=== PATIENT | male | born 1965 | race Hispanic/Latino ===

== ENCOUNTER 2020-01-26 18:14 | Emergency (ER) | payer SELFPAY ==
[2020-01-26 19:20] LABS: #Eosinphils 0.1 thou/uL (0.0-0.7); #Lymphocytes 1.1 thou/uL (1.20-3.40); #Monocytes 0.4 thou/uL (0.11-0.59); #Neutrophils 8.8 thou/uL (1.40-6.50); %Basophils 0.4 % (0.0-1.0); %Eosinophils 0.7 % (0.0-10.0); %Lymphocytes 10.7 % (21.0-51.0); %Neutrophils 84.2 % (42.0-75.0); Hemoglobin 11.3 g/dL (14.0-18.0); Mean Corpuscular HGB CONC 35.1 g/dL (32.0-36.0); Mean Corpuscular Volume 82.6 fL (78.0-98.0); Mean Platelet Volume 8.1 fL (7.4-10.4); Platelet Count 221 thou/uL (130-400); RBC Distribution Width 12.8 % (11.5-14.5); Red Blood Cell (RBC) Count 3.89 mill/uL (4.70-6.10); White Blood Cell (WBC) Count 10.5 thou/uL (4.8-10.8)
[2020-01-26 19:44] LABS: ALT (SGPT) 33 U/L (8-55); AST (SGOT) 19 U/L (5-34); Albumin 3.4 g/dL (3.5-5.0); Alkaline Phosphatase 107 U/L (40-110); Anion Gap 14 mmol/L (10-20); BUN (Urea Nitrogen) 34 mg/dL (8.4-25.7); Bilirubin, Total 0.3 mg/dL (0.2-1.2); Calc. Creatinine Clearance 0 mL/min (70-130); Calcium 8.8 mg/dL (7.8-10.44); Carbon Dioxide 22 mmol/L (22-29); Chloride 110 mmol/L (98-107); Estimated GFR-MDRD 29; Globulin 3.2 g/dL (2.4-3.5); Glucose 122 mg/dL (70-105); Protein, Total 6.6 g/dL (6.0-8.3); Sodium 141 mmol/L (136-145)
== END 2020-01-26 20:47 | disposition home or self-care (01) ==
LOC: ERS 18:14
DX: I12.9 Hypertensive chronic kidney disease with stage 1 through stage 4 chronic kidney disease, or unspecified chronic kidney disease (principal); N18.9 Chronic kidney disease, unspecified; D63.1 Anemia in chronic kidney disease; E11.22 Type 2 diabetes mellitus with diabetic chronic kidney disease
CPT/HCPCS: 36415; 80053; 84484; 85025; 93005; 96360

== ENCOUNTER 2021-11-10 10:40 | Inpatient (IN) | payer SELFPAY ==
[~2021-11-10 10:40] MED LIST: Heparin 10,000 UNITS/ 10 ML VIAL ONE
[2021-11-10 12:16] LABS: #Eosinphils 0.1 thou/uL (0.0-0.7); #Lymphocytes 1.4 thou/uL (1.20-3.40); #Monocytes 0.5 thou/uL (0.11-0.59); %Basophils 0.6 % (0.0-1.0); %Eosinophils 1.6 % (0.0-10.0); %Lymphocytes 22.8 % (21.0-51.0); %Monocytes 8.3 % (0.0-10.0); %Neutrophils 66.7 % (42.0-75.0); Hemoglobin 12.1 g/dL (14.0-18.0); Mean Corpuscular HGB CONC 34.1 g/dL (32.0-36.0); Mean Corpuscular Volume 85.1 fL (78.0-98.0); Mean Platelet Volume 7.3 fL (7.4-10.4); Platelet Count 198 thou/uL (130-400); RBC Distribution Width 13.6 % (11.5-14.5); Red Blood Cell (RBC) Count 4.17 mill/uL (4.70-6.10); White Blood Cell (WBC) Count 6.1 thou/uL (4.8-10.8)
[2021-11-10 12:23] LABS: Bacteria/HPF None Seen HPF (None Seen); Bilirubin Negative (Negative); Blood, Urine Trace (Negative); Clarity Clear (Clear); Glucose, Urine (Dipstick) 70 mg/dL (Negative); Ketone, Urine Negative (Negative); Leukocyte Negative Leu/uL (Negative); Nitrite Negative (Negative); Protein, Urine (Dipstick) 300 mg/dL (Neg-Trace); RBC/HPF 0-3 HPF (0-3); Specific Gravity, Urine 1.012 (1.002-1.036); Squamous Epithelial None Seen HPF (0-3); Urobilinogen Normal mg/dL (Less than 2); WBC/HPF 0-3 HPF (0-3); pH, Urine 7.5 (5.0-9.0)
[2021-11-10] MEDS ORDERED: hydrALAZINE 20 MG/ML VIAL ONE (12:30)
[2021-11-10 12:37] LABS: ALT (SGPT) 20 U/L (8-55); AST (SGOT) 13 U/L (5-34); Albumin 3.3 g/dL (3.5-5.0); Alkaline Phosphatase 111 U/L (40-110); Anion Gap 14 mmol/L (10-20); BUN (Urea Nitrogen) 50 mg/dL (8.4-25.7); Bilirubin, Total 0.3 mg/dL (0.2-1.2); Calc. Creatinine Clearance 0 mL/min (70-130); Calcium 7.7 mg/dL (7.8-10.44); Carbon Dioxide 18 mmol/L (22-29); Chloride 112 mmol/L (98-107); Globulin 2.8 g/dL (2.4-3.5); Glucose 96 mg/dL (70-105); Lipase 30 U/L (8-78); Potassium 5.1 mmol/L (3.5-5.1); Protein, Total 6.1 g/dL (6.0-8.3); Sodium 139 mmol/L (136-145)
[2021-11-10 12:54] LABS: SARS-CoV-2 NAA Rapid Test Not Detected (NotDetected)
[2021-11-10] MEDS ORDERED: Aspirin Chewable 81 MG TAB ONE (13:20)
[2021-11-10] MEDS ORDERED: Nitroglycerin 2% Ointment 1 INCH/1 GM Packet ONE (13:20)
[2021-11-10] MEDS ORDERED: Nitroglycerin 50 MG/250 ML BOT 250 ML IVPB SCH (13:45)
[2021-11-10] MEDS ORDERED: Heparin 10,000 UNITS/ 10 ML VIAL SLOW IVP SCH (13:45)
[2021-11-10] MEDS ORDERED: Heparin 25,000 units/D5W 500 ML IVPB SCH (13:45)
[2021-11-10] MEDS ORDERED: Nitroglycerin 50 MG/250 ML BOT 250 ML ONE (14:04)
[2021-11-10 14:06] LABS: Hemoglobin 11.7 g/dL (14.0-18.0); Platelet Count 201 thou/uL (130-400)
[2021-11-10] MEDS ORDERED: Ondansetron PF 4 MG/2 ML Vial IVP PRN (14:15)
[2021-11-10] MEDS ORDERED: Heparin 25,000 units/D5W 500 ML ONE (14:36)
[2021-11-10 14:43] LABS: Prothrombin Time 13.5 sec (12.0-14.7)
[2021-11-10 15:53] LABS: Critical Call Chem Troponin I RESULT DECREASING
[2021-11-10] MEDS ORDERED: HumaLOG 300 UNITS/3 ML VIAL SC PRN ×2 (15:56)
[2021-11-10] MEDS ORDERED: Dextrose 50% Abboject 50 ML SYRINGE SLOW IVP PRN (15:56)
[2021-11-10] MEDS ORDERED: Dextrose 5% in Water 1,000 ML IV PRN (15:56)
[2021-11-10 16:10] LABS: HBSAB Concentration Less than 8.00 mIU/mL; HBSAg Index 0.21 S/CO (0-0.99); Hep B Core Total Ab Non-Reactive (NonReactive); Hep B Core Total Index 0.06 S/CO (0-0.79); Hep B Surf AB Non-Reactive (NonReactive); Hep B Surf Ag Non-Reactive S/CO (NonReactive); Hep C IgG Ab Non-Reactive (NonReactive); Hep C Index 0.08 S/CO (0-0.79)
[2021-11-10 18:35] LABS: Critical Call Chem Troponin I RESULT DECREASING
[2021-11-10 18:41] LABS: Hemoglobin 11.9 g/dL (14.0-18.0); Platelet Count 198 thou/uL (130-400)
[2021-11-10 18:44] VITALS: BMI 33.3
[2021-11-10] MEDS: Heparin 10,000 UNITS/ 10 ML VIAL SLOW IVP SCH (21:47)
[2021-11-10] MEDS: Heparin 25,000 units/D5W 500 ML IVPB SCH (21:48)
[2021-11-10] MEDS: hydrALAZINE 25 MG TAB PO SCH (22:01)
[2021-11-10] MEDS: Famotidine 20 MG TAB PO SCH (22:01)
[2021-11-11 04:18] LABS: #Eosinphils 0.1 thou/uL (0.0-0.7); #Lymphocytes 1.3 thou/uL (1.20-3.40); #Monocytes 0.4 thou/uL (0.11-0.59); #Neutrophils 3.6 thou/uL (1.40-6.50); %Basophils 0.6 % (0.0-1.0); %Eosinophils 1.4 % (0.0-10.0); %Lymphocytes 24.3 % (21.0-51.0); %Monocytes 7.7 % (0.0-10.0); Hemoglobin 11.5 g/dL (14.0-18.0); Mean Corpuscular HGB CONC 34.1 g/dL (32.0-36.0); Mean Corpuscular Hemoglobin 29.3 pg (27.0-31.0); Mean Corpuscular Volume 85.7 fL (78.0-98.0); Mean Platelet Volume 7.4 fL (7.4-10.4); Platelet Count 173 thou/uL (130-400); RBC Distribution Width 13.6 % (11.5-14.5); Red Blood Cell (RBC) Count 3.94 mill/uL (4.70-6.10); White Blood Cell (WBC) Count 5.5 thou/uL (4.8-10.8)
[2021-11-11 04:43] LABS: ALT (SGPT) 16 U/L (8-55); AST (SGOT) 12 U/L (5-34); Albumin 2.9 g/dL (3.5-5.0); Alkaline Phosphatase 100 U/L (40-110); Anion Gap 12 mmol/L (10-20); BUN (Urea Nitrogen) 40 mg/dL (8.4-25.7); Bilirubin, Total 0.3 mg/dL (0.2-1.2); Calc. Creatinine Clearance 22 mL/min (70-130); Calcium 7.9 mg/dL (7.8-10.44); Carbon Dioxide 24 mmol/L (22-29); Chloride 105 mmol/L (98-107); Globulin 3.3 g/dL (2.4-3.5); Glucose 69 mg/dL (70-105); Protein, Total 6.2 g/dL (6.0-8.3); Sodium 137 mmol/L (136-145)
[2021-11-11] MEDS: Heparin 10,000 UNITS/ 10 ML VIAL SLOW IVP SCH ×2 (05:36→13:11)
[2021-11-11] MEDS: Carvedilol 6.25 MG TAB PO SCH ×2 (08:08→16:46)
[2021-11-11] MEDS: hydrALAZINE 25 MG TAB PO SCH ×3 (09:04→20:10)
[2021-11-11] MEDS ORDERED: Heparin 10,000 UNITS/ 10 ML VIAL ONE (09:29)
[2021-11-11] MEDS: Heparin 25,000 units/D5W 500 ML IVPB SCH (16:47)
[2021-11-11] MEDS: Labetalol HCl 100 MG/20 ML VIAL SLOW IVP PRN (20:10)
[2021-11-11] MEDS: Famotidine 20 MG TAB PO SCH (20:11)
[2021-11-11] MEDS: niCARdipine 25 MG in Sodium Chloride 0.9% 250 ML 250 ML IVPB SCH (22:35)
[2021-11-12 02:19] LABS: #Lymphocytes 1.5 thou/uL (1.20-3.40); #Monocytes 0.4 thou/uL (0.11-0.59); #Neutrophils 3.7 thou/uL (1.40-6.50); %Basophils 0.5 % (0.0-1.0); %Eosinophils 0.8 % (0.0-10.0); %Lymphocytes 25.9 % (21.0-51.0); %Monocytes 7.6 % (0.0-10.0); %Neutrophils 65.2 % (42.0-75.0); Hemoglobin 11.9 g/dL (14.0-18.0); Mean Corpuscular HGB CONC 35.2 g/dL (32.0-36.0); Mean Corpuscular Hemoglobin 29.9 pg (27.0-31.0); Mean Corpuscular Volume 84.9 fL (78.0-98.0); Platelet Count 161 thou/uL (130-400); RBC Distribution Width 13.5 % (11.5-14.5); White Blood Cell (WBC) Count 5.7 thou/uL (4.8-10.8)
[2021-11-12 02:51] LABS: ALT (SGPT) 13 U/L (8-55); AST (SGOT) 10 U/L (5-34); Albumin 2.9 g/dL (3.5-5.0); Alkaline Phosphatase 101 U/L (40-110); Anion Gap 17 mmol/L (10-20); BUN (Urea Nitrogen) 33 mg/dL (8.4-25.7); Bilirubin, Total 0.2 mg/dL (0.2-1.2); Calc. Creatinine Clearance 24 mL/min (70-130); Calcium 7.8 mg/dL (7.8-10.44); Carbon Dioxide 24 mmol/L (22-29); Chloride 98 mmol/L (98-107); Globulin 3.3 g/dL (2.4-3.5); Glucose 115 mg/dL (70-105); Potassium 3.9 mmol/L (3.5-5.1); Protein, Total 6.2 g/dL (6.0-8.3); Sodium 135 mmol/L (136-145)
[2021-11-12] MEDS: niCARdipine 25 MG in Sodium Chloride 0.9% 250 ML 250 ML IVPB SCH (05:37)
[2021-11-12 06:57] LABS: PTT 116.2 sec (22.9-36.1)
[2021-11-12] MEDS: Carvedilol 6.25 MG TAB PO SCH (08:16)
[2021-11-12] MEDS: hydrALAZINE 25 MG TAB PO SCH ×4 (08:17→20:53)
[2021-11-12] MEDS: Carvedilol 25 MG TAB PO SCH ×2 (09:00→16:30)
[2021-11-12] MEDS ORDERED: Heparin 10,000 UNITS/ 10 ML VIAL ONE (09:31)
[2021-11-12] MEDS: Heparin 25,000 units/D5W 500 ML IVPB SCH (12:12)
[2021-11-12] MEDS ORDERED: Insulin Regular 300 UNITS/3 ML VIAL SC PRN (17:32)
[2021-11-12] MEDS ORDERED: HumaLOG 300 UNITS/3 ML VIAL SC PRN (17:35)
[2021-11-12] MEDS: Famotidine 20 MG TAB PO SCH (20:54)
[2021-11-13 04:19] LABS: Anion Gap 14 mmol/L (10-20); BUN (Urea Nitrogen) 22 mg/dL (8.4-25.7); Calc. Creatinine Clearance 26 mL/min (70-130); Calcium 7.9 mg/dL (7.8-10.44); Carbon Dioxide 23 mmol/L (22-29); Chloride 102 mmol/L (98-107); Glucose 113 mg/dL (70-105); Potassium 3.8 mmol/L (3.5-5.1); Sodium 135 mmol/L (136-145)
[2021-11-13] MEDS: Heparin 10,000 UNITS/ 10 ML VIAL SLOW IVP SCH (04:54)
[2021-11-13] MEDS: Heparin 25,000 units/D5W 500 ML IVPB SCH (04:55)
[2021-11-13] MEDS: Labetalol HCl 100 MG/20 ML VIAL SLOW IVP PRN (06:28)
[2021-11-13] MEDS: Carvedilol 25 MG TAB PO SCH ×3 (08:40→16:21)
[2021-11-13] MEDS: hydrALAZINE 25 MG TAB PO SCH ×3 (08:41→20:34)
[2021-11-13] MEDS ORDERED: Prevnar 13-Val Conj/PF 0.5 ML SYRINGE IM ONE (09:00)
[2021-11-13] MEDS: Famotidine 20 MG TAB PO SCH (20:35)
[2021-11-14] MEDS: Labetalol HCl 100 MG/20 ML VIAL SLOW IVP PRN (07:23)
[2021-11-14] MEDS ORDERED: Heparin 10,000 UNITS/ 10 ML VIAL ONE (09:32)
[2021-11-14] MEDS: Carvedilol 25 MG TAB PO SCH ×3 (09:54→16:53)
[2021-11-14] MEDS: hydrALAZINE 25 MG TAB PO SCH ×3 (09:54→21:29)
[2021-11-14] MEDS: Heparin 25,000 units/D5W 500 ML IVPB SCH (12:38)
[2021-11-14] MEDS: Famotidine 20 MG TAB PO SCH (21:31)
[2021-11-15] MEDS: Heparin 25,000 units/D5W 500 ML IVPB SCH (02:44)
[2021-11-15] MEDS: Valsartan 80 MG TAB PO SCH (08:14)
[2021-11-15] MEDS: Carvedilol 25 MG TAB PO SCH ×3 (08:14→17:29)
[2021-11-15] MEDS: hydrALAZINE 25 MG TAB PO SCH ×3 (08:14→21:46)
[2021-11-15] MEDS: Ondansetron ODT 4 MG TAB PO PRN (17:31)
[2021-11-15] MEDS ORDERED: diphenhydrAMINE 12.5 MG/5 ML UDCUP PO SCH (19:45)
[2021-11-15] MEDS: Heparin 5,000 UNITS/ML VIAL SC SCH (21:47)
[2021-11-15] MEDS: Famotidine 20 MG TAB PO SCH (21:47)
[2021-11-15] MEDS ORDERED: ceFAZolin (BATCH) 2 GM in Premix Bag 1 BAG IVPB SCH (23:30)
[2021-11-16 03:57] LABS: #Lymphocytes 1.6 thou/uL (1.20-3.40); #Monocytes 0.6 thou/uL (0.11-0.59); #Neutrophils 3.6 thou/uL (1.40-6.50); %Basophils 0.5 % (0.0-1.0); %Eosinophils 0.1 % (0.0-10.0); %Lymphocytes 27.1 % (21.0-51.0); %Neutrophils 62.3 % (42.0-75.0); Hemoglobin 11.2 g/dL (14.0-18.0); Mean Corpuscular HGB CONC 34.2 g/dL (32.0-36.0); Mean Corpuscular Hemoglobin 28.7 pg (27.0-31.0); Mean Corpuscular Volume 84.1 fL (78.0-98.0); Mean Platelet Volume 8.5 fL (7.4-10.4); Platelet Count 159 thou/uL (130-400); RBC Distribution Width 13.5 % (11.5-14.5); Red Blood Cell (RBC) Count 3.91 mill/uL (4.70-6.10); White Blood Cell (WBC) Count 5.8 thou/uL (4.8-10.8)
[2021-11-16 04:15] LABS: Anion Gap 17 mmol/L (10-20); BUN (Urea Nitrogen) 43 mg/dL (8.4-25.7); Calc. Creatinine Clearance 17 mL/min (70-130); Calcium 8.4 mg/dL (7.8-10.44); Carbon Dioxide 25 mmol/L (22-29); Chloride 98 mmol/L (98-107); Glucose 109 mg/dL (70-105); Potassium 3.5 mmol/L (3.5-5.1); Sodium 136 mmol/L (136-145)
[2021-11-16] MEDS: hydrALAZINE 25 MG TAB PO SCH ×3 (05:22→21:15)
[2021-11-16] MEDS: Carvedilol 25 MG TAB PO SCH ×3 (05:22→18:07)
[2021-11-16] MEDS: Valsartan 80 MG TAB PO SCH (05:23)
[2021-11-16] MEDS ORDERED: Ioversol 68 % 50 ML VIAL ONE (06:42)
[2021-11-16] MEDS ORDERED: Protamine Sulfate 50 MG/5 ML VIAL ONE (06:42)
[2021-11-16] MEDS ORDERED: Heparin 5,000 UNITS/ML VIAL ONE (06:42)
[2021-11-16] MEDS ORDERED: Bupivacaine 0.25% 10 ML VIAL ONE (06:42)
[2021-11-16] MEDS ORDERED: Heparin 10,000 UNITS/ 10 ML VIAL ONE ×2 (06:42→08:33)
[2021-11-16] MEDS ORDERED: EPINEPHrine 1 MG/ML AMP ONE (06:47)
[2021-11-16] MEDS ORDERED: EPINEPHrine 1 MG/10 ML Abboject SYRINGE ONE (06:47)
[2021-11-16] MEDS ORDERED: Midazolam HCl 2 mg/2 ml Vial ONE ×2 (06:47→07:11)
[2021-11-16] MEDS ORDERED: Fentanyl 100 MCG/2 ML VIAL ONE ×2 (06:47→07:11)
[2021-11-16] MEDS ORDERED: Ropivacaine 0.5% HCl/PF (150 MG/30 ML VIAL) ONE (06:48)
[2021-11-16] MEDS ORDERED: Lidocaine 1% w/Epinephrine 1:100K 20 ML VIAL ONE (06:57)
[2021-11-16] MEDS ORDERED: Propofol 500 MG/50 ML VIAL ONE (07:11)
[2021-11-16] MEDS ORDERED: ceFAZolin (BATCH) 2 GM/100 ML BAG ONE (07:30)
[2021-11-16] MEDS ORDERED: Phenylephrine 10 MG/ML VIAL ONE (08:34)
[2021-11-16] MEDS: Heparin 5,000 UNITS/ML VIAL SC SCH ×3 (10:10→21:15)
[2021-11-16] MEDS ORDERED: Communication Order-Pharmacy FS SCH (18:15)
[2021-11-16] MEDS: Famotidine 20 MG TAB PO SCH (21:15)
[2021-11-16 23:45] LABS: SARS-CoV-2 PCR by NAA Not Detected (NotDetected)
[2021-11-17] MEDS: hydrALAZINE 25 MG TAB PO SCH ×3 (05:53→20:46)
[2021-11-17] MEDS: Valsartan 80 MG TAB PO SCH (05:53)
[2021-11-17] MEDS: Carvedilol 25 MG TAB PO SCH ×3 (05:53→17:46)
[2021-11-17] MEDS ORDERED: Midazolam HCl 2 mg/2 ml Vial ONE (07:32)
[2021-11-17] MEDS ORDERED: Fentanyl 100 MCG/2 ML VIAL ONE (07:32)
[2021-11-17] MEDS ORDERED: Heparin 10,000 UNITS/ 10 ML VIAL ONE (08:13)
[2021-11-17] MEDS ORDERED: TICAGRELOR 90 MG TABLET ONE (08:23)
[2021-11-17] MEDS ORDERED: Nitroglycerin 100MG/250ML BOT 250 ML ONE (08:23)
[2021-11-17] MEDS ORDERED: Iopamidol 370 76% 50 ML VIAL FS ONE (09:05)
[2021-11-17] MEDS ORDERED: Iopamidol 370 76% 100 ML VIAL ONE (09:05)
[2021-11-17] MEDS: Heparin 5,000 UNITS/ML VIAL SC SCH ×3 (09:05→20:46)
[2021-11-17] MEDS ORDERED: Aspirin 81 mg Enteric Coated Tablet ONE (09:06)
[2021-11-17] MEDS ORDERED: Clopidogrel Bisulfate 75 MG TAB ONE (09:07)
[2021-11-17] MEDS: Clopidogrel Bisulfate 75 MG TAB PO SCH (09:10)
[2021-11-17] MEDS: Aspirin Chewable 81 MG TAB PO SCH (09:10)
[2021-11-17] MEDS: Docusate 100 MG CAP PO SCH ×2 (09:11→20:46)
[2021-11-17] MEDS ORDERED: hydrALAZINE 20 MG/ML VIAL ONE (10:24)
[2021-11-17] MEDS: Ondansetron ODT 4 MG TAB PO PRN (14:33)
[2021-11-17] MEDS ORDERED: Famotidine 20 MG TAB PO SCH (21:00)
[2021-11-17] MEDS ORDERED: Atorvastatin Calcium 20 MG TAB PO SCH (21:00)
[2021-11-18 03:58] LABS: #Lymphocytes 1.2 thou/uL (1.20-3.40); #Monocytes 0.6 thou/uL (0.11-0.59); #Neutrophils 4.1 thou/uL (1.40-6.50); %Basophils 0.6 % (0.0-1.0); %Eosinophils 0.1 % (0.0-10.0); %Lymphocytes 20.3 % (21.0-51.0); %Monocytes 10.3 % (0.0-10.0); %Neutrophils 68.7 % (42.0-75.0); Hemoglobin 11.2 g/dL (14.0-18.0); Mean Corpuscular HGB CONC 32.9 g/dL (32.0-36.0); Mean Corpuscular Hemoglobin 27.9 pg (27.0-31.0); Mean Corpuscular Volume 84.7 fL (78.0-98.0); Mean Platelet Volume 8.6 fL (7.4-10.4); Platelet Count 149 thou/uL (130-400); RBC Distribution Width 13.5 % (11.5-14.5); Red Blood Cell (RBC) Count 4.01 mill/uL (4.70-6.10)
[2021-11-18 04:22] LABS: ALT (SGPT) 19 U/L (8-55); AST (SGOT) 21 U/L (5-34); Albumin 2.9 g/dL (3.5-5.0); Alkaline Phosphatase 94 U/L (40-110); Anion Gap 17 mmol/L (10-20); BUN (Urea Nitrogen) 42 mg/dL (8.4-25.7); Bilirubin, Total 0.3 mg/dL (0.2-1.2); Calc. Creatinine Clearance 15 mL/min (70-130); Calcium 8.1 mg/dL (7.8-10.44); Carbon Dioxide 22 mmol/L (22-29); Chloride 99 mmol/L (98-107); Cholesterol 281 mg/dl (< 200 Desired); Globulin 3.1 g/dL (2.4-3.5); Glucose 91 mg/dL (70-105); HDL Cholesterol 28 mg/dL (>60 Neg Risk); LDL Cholesterol, Calculated 213 mg/dL; Sodium 134 mmol/L (136-145); Triglycerides 201 mg/dL (Less than 150)
[2021-11-18] MEDS: Carvedilol 25 MG TAB PO SCH ×3 (08:26→17:01)
[2021-11-18] MEDS: Heparin 5,000 UNITS/ML VIAL SC SCH ×2 (08:27→14:54)
[2021-11-18] MEDS: hydrALAZINE 25 MG TAB PO SCH ×2 (08:27→14:57)
[2021-11-18] MEDS ORDERED: Heparin 10,000 UNITS/ 10 ML VIAL ONE (09:06)
[2021-11-18] MEDS: Clopidogrel Bisulfate 75 MG TAB PO SCH (12:58)
[2021-11-18] MEDS: Valsartan 80 MG TAB PO SCH (12:58)
[2021-11-18] MEDS: Docusate 100 MG CAP PO SCH (12:58)
[2021-11-18] MEDS: Aspirin Chewable 81 MG TAB PO SCH (12:59)
[2021-11-18] MEDS: Ondansetron ODT 4 MG TAB PO PRN (16:22)
[2021-11-18 16:27] VITALS: BP 116/56; TEMP 98.2
[2021-11-19] MEDS ORDERED: Valsartan 80 MG TAB PO SCH (09:00)
== END 2021-11-18 17:17 | disposition home or self-care (01) | DRG 673 ==
LOC: ERS 10:40 → CCU 14:25 → 2NO 11-12 15:13
PROVIDERS: ADMIT Student in an Organized Health Care Education/Training Program; ATTEND Student in an Organized Health Care Education/Training Program
PROC: 5A1D70Z Performance of Urinary Filtration, Intermittent, Less than 6 Hours Per Day (ICD-10-PCS; 2021-11-10)
PROC: 031C0ZF Bypass Left Radial Artery to Lower Arm Vein, Open Approach (ICD-10-PCS; principal; 2021-11-17)
PROC: 02703DZ Dilation of Coronary Artery, One Artery with Intraluminal Device, Percutaneous Approach (ICD-10-PCS; 2021-11-17)
PROC: 4A023N7 Measurement of Cardiac Sampling and Pressure, Left Heart, Percutaneous Approach (ICD-10-PCS; 2021-11-17)
PROC: B2151ZZ Fluoroscopy of Left Heart using Low Osmolar Contrast (ICD-10-PCS; 2021-11-17)
PROC: B2111ZZ Fluoroscopy of Multiple Coronary Arteries using Low Osmolar Contrast (ICD-10-PCS; 2021-11-17)
PROC: 0JH63XZ Insertion of Tunneled Vascular Access Device into Chest Subcutaneous Tissue and Fascia, Percutaneous Approach (ICD-10-PCS; 2021-11-17)
PROC: 02HV33Z Insertion of Infusion Device into Superior Vena Cava, Percutaneous Approach (ICD-10-PCS; 2021-11-17)
PROC: B548ZZA Ultrasonography of Superior Vena Cava, Guidance (ICD-10-PCS; 2021-11-17)
PROC: 06HY33Z Insertion of Infusion Device into Lower Vein, Percutaneous Approach (ICD-10-PCS; 2021-11-17)
DX: I12.0 Hypertensive chronic kidney disease with stage 5 chronic kidney disease or end stage renal disease (principal); I21.A1 Myocardial infarction type 2; N18.6 End stage renal disease; I16.1 Hypertensive emergency; N17.9 Acute kidney failure, unspecified; E87.2 Acidosis; Z20.822 Contact with and (suspected) exposure to COVID-19; E11.22 Type 2 diabetes mellitus with diabetic chronic kidney disease; R42 Dizziness and giddiness; D63.1 Anemia in chronic kidney disease; E87.5 Hyperkalemia; Z79.84 Long term (current) use of oral hypoglycemic drugs; Z79.899 Other long term (current) drug therapy
CPT/HCPCS: 36415; 36416; 70450; 71045; 80048; 80053; 80061; 81003; 81015; 82553; 83690; 83735; 83880; 84484; 85025; 85347; 85610; 85730; 86704; 86706; 86803; 87340; 90935; 92928; 93005; 93010; 93306; 93458; 93798; 93970; 94760; 96365; 96366; 96374; 97139; 99152; 99153; C1713; C1752; C1769; C1776; C1876; G0257; J0171; J0360; J0690; J1644; J1815; J2250; J2370; J2704; J2720; J2795; J3010; J7050; Q0162; Q0163; Q9967; S0020; U0002; U0003; U0005

== ENCOUNTER 2021-11-21 05:49 | Emergency (ER) | payer SELFPAY ==
[2021-11-21 06:27] LABS: #Lymphocytes 1.2 thou/uL (1.20-3.40); #Monocytes 0.8 thou/uL (0.11-0.59); %Basophils 0.5 % (0.0-1.0); %Eosinophils 0.2 % (0.0-10.0); %Lymphocytes 16.7 % (21.0-51.0); %Monocytes 11.4 % (0.0-10.0); %Neutrophils 71.2 % (42.0-75.0); Hemoglobin 10.4 g/dL (14.0-18.0); Mean Corpuscular HGB CONC 34.3 g/dL (32.0-36.0); Mean Corpuscular Hemoglobin 28.7 pg (27.0-31.0); Mean Corpuscular Volume 83.5 fL (78.0-98.0); Mean Platelet Volume 8.5 fL (7.4-10.4); Platelet Count 176 thou/uL (130-400); RBC Distribution Width 13.5 % (11.5-14.5); Red Blood Cell (RBC) Count 3.63 mill/uL (4.70-6.10)
[2021-11-21 07:28] LABS: Albumin 3.1 g/dL (3.5-5.0)
[2021-11-21 07:29] LABS: Chloride 96 mmol/L (98-107); Potassium 4.1 mmol/L (3.5-5.1); Sodium 132 mmol/L (136-145)
[2021-11-21 07:30] LABS: Calcium 8.1 mg/dL (7.8-10.44); Glucose 156 mg/dL (70-105)
[2021-11-21 07:31] LABS: Globulin 3.3 g/dL (2.4-3.5); Protein, Total 6.4 g/dL (6.0-8.3)
[2021-11-21 07:32] LABS: Anion Gap 20 mmol/L (10-20); Bilirubin, Total 0.3 mg/dL (0.2-1.2); Carbon Dioxide 20 mmol/L (22-29)
[2021-11-21 07:33] LABS: Alkaline Phosphatase 88 U/L (40-110)
[2021-11-21 07:34] LABS: BUN (Urea Nitrogen) 70 mg/dL (8.4-25.7); Calc. Creatinine Clearance 0 mL/min (70-130)
[2021-11-21 07:35] LABS: AST (SGOT) 13 U/L (5-34)
[2021-11-21 07:36] LABS: ALT (SGPT) 9 U/L (8-55)
== END 2021-11-21 09:34 | disposition home or self-care (01) ==
LOC: ERS 05:49
DX: I12.0 Hypertensive chronic kidney disease with stage 5 chronic kidney disease or end stage renal disease (principal); N18.6 End stage renal disease; E11.9 Type 2 diabetes mellitus without complications
CPT/HCPCS: 36415; 71045; 80053; 85025; 93005

== ENCOUNTER 2021-11-24 07:40 | Emergency (ER) | payer SELFPAY ==
[2021-11-24 08:51] LABS: #Basophils 0.1 thou/uL (0.0-0.2); #Monocytes 0.7 thou/uL (0.11-0.59); #Neutrophils 4.6 thou/uL (1.40-6.50); %Basophils 0.8 % (0.0-1.0); %Eosinophils 0.2 % (0.0-10.0); %Lymphocytes 15.2 % (21.0-51.0); %Monocytes 11.4 % (0.0-10.0); %Neutrophils 72.5 % (42.0-75.0); Hemoglobin 9.7 g/dL (14.0-18.0); Mean Corpuscular HGB CONC 34.7 g/dL (32.0-36.0); Mean Corpuscular Hemoglobin 28.9 pg (27.0-31.0); Mean Corpuscular Volume 83.2 fL (78.0-98.0); Mean Platelet Volume 8.2 fL (7.4-10.4); Platelet Count 215 thou/uL (130-400); RBC Distribution Width 13.4 % (11.5-14.5); Red Blood Cell (RBC) Count 3.37 mill/uL (4.70-6.10); White Blood Cell (WBC) Count 6.3 thou/uL (4.8-10.8)
[2021-11-24] MEDS ORDERED: Heparin 10,000 UNITS/ 10 ML VIAL ONE (08:52)
[2021-11-24 09:05] LABS: Chloride 102 mmol/L (98-107); Potassium 4.8 mmol/L (3.5-5.1); Sodium 138 mmol/L (136-145)
[2021-11-24 09:07] LABS: Albumin 3.1 g/dL (3.5-5.0)
[2021-11-24 09:09] LABS: Calcium 7.5 mg/dL (7.8-10.44)
[2021-11-24 09:10] LABS: Globulin 2.7 g/dL (2.4-3.5); Glucose 159 mg/dL (70-105); Protein, Total 5.8 g/dL (6.0-8.3)
[2021-11-24 09:11] LABS: Anion Gap 22 mmol/L (10-20); Carbon Dioxide 18 mmol/L (22-29)
[2021-11-24 09:12] LABS: Bilirubin, Total 0.3 mg/dL (0.2-1.2)
[2021-11-24 09:13] LABS: Alkaline Phosphatase 89 U/L (40-110); Calc. Creatinine Clearance 0 mL/min (70-130)
[2021-11-24 09:14] LABS: BUN (Urea Nitrogen) 90 mg/dL (8.4-25.7)
[2021-11-24 09:15] LABS: AST (SGOT) 11 U/L (5-34)
[2021-11-24 09:16] LABS: ALT (SGPT) 11 U/L (8-55); CK (CPK) 104 U/L (30-200)
[2021-11-24 09:29] LABS: CKMB 1.3 ng/mL (0-6.6)
[2021-11-24] MEDS ORDERED: Aspirin Chewable 81 MG TAB ONE ×2 (09:36→09:37)
[2021-11-24] MEDS ORDERED: EPOETIN ALFA-EPBX (ESRD) 10,000 UNIT/ML VIAL IVP SCH (10:00)
== END 2021-11-24 16:58 | disposition home or self-care (01) ==
LOC: ERS 07:40
DX: I12.0 Hypertensive chronic kidney disease with stage 5 chronic kidney disease or end stage renal disease (principal); N18.6 End stage renal disease; N19 Unspecified kidney failure; E11.9 Type 2 diabetes mellitus without complications; Z79.82 Long term (current) use of aspirin; Z79.899 Other long term (current) drug therapy; Z99.2 Dependence on renal dialysis
CPT/HCPCS: 36415; 71045; 80053; 82550; 82553; 83880; 84484; 85025; 93005; 94760; J1644

== ENCOUNTER 2021-12-01 06:17 | Emergency (ER) | payer MEDICAID, SELFPAY ==
[2021-12-01] MEDS ORDERED: Acetaminophen 500 MG TAB ONE (07:30)
[2021-12-01] MEDS ORDERED: Ondansetron ODT 4 MG TAB ONE (07:32)
[2021-12-01 07:36] LABS: #Lymphocytes 0.8 thou/uL (1.20-3.40); #Monocytes 0.9 thou/uL (0.11-0.59); #Neutrophils 8.1 thou/uL (1.40-6.50); %Basophils 0.1 % (0.0-1.0); %Eosinophils 0.1 % (0.0-10.0); %Lymphocytes 8.3 % (21.0-51.0); %Monocytes 9.1 % (0.0-10.0); %Neutrophils 82.3 % (42.0-75.0); Hemoglobin 8.9 g/dL (14.0-18.0); Mean Corpuscular HGB CONC 32.5 g/dL (32.0-36.0); Mean Corpuscular Hemoglobin 27.8 pg (27.0-31.0); Mean Corpuscular Volume 85.7 fL (78.0-98.0); Mean Platelet Volume 7.6 fL (7.4-10.4); Platelet Count 228 thou/uL (130-400); RBC Distribution Width 14.2 % (11.5-14.5); Red Blood Cell (RBC) Count 3.18 mill/uL (4.70-6.10); White Blood Cell (WBC) Count 9.9 thou/uL (4.8-10.8)
[2021-12-01 07:59] LABS: ALT (SGPT) 10 U/L (8-55); AST (SGOT) 5 U/L (5-34); Alkaline Phosphatase 78 U/L (40-110); Anion Gap 19 mmol/L (10-20); BUN (Urea Nitrogen) 99 mg/dL (8.4-25.7); Bilirubin, Total 0.5 mg/dL (0.2-1.2); Calc. Creatinine Clearance 0 mL/min (70-130); Calcium 8.2 mg/dL (7.8-10.44); Carbon Dioxide 16 mmol/L (22-29); Chloride 101 mmol/L (98-107); Globulin 3.2 g/dL (2.4-3.5); Glucose 301 mg/dL (70-105); Potassium 4.6 mmol/L (3.5-5.1); Protein, Total 6.2 g/dL (6.0-8.3); Sodium 131 mmol/L (136-145)
== END 2021-12-01 08:49 | disposition home or self-care (01) ==
LOC: ERS 06:17
DX: I12.0 Hypertensive chronic kidney disease with stage 5 chronic kidney disease or end stage renal disease (principal); E11.22 Type 2 diabetes mellitus with diabetic chronic kidney disease; N18.6 End stage renal disease; Z79.82 Long term (current) use of aspirin; Z79.899 Other long term (current) drug therapy
CPT/HCPCS: 36415; 80053; 85025; 99283; Q0162

== ENCOUNTER 2021-12-05 05:14 | Emergency (ER) | payer MEDICAID, SELFPAY ==
[2021-12-05] MEDS ORDERED: Ondansetron ODT 8 MG TAB ONE (05:29)
[2021-12-05 05:55] LABS: #Lymphocytes 0.6 thou/uL (1.20-3.40); #Monocytes 0.8 thou/uL (0.11-0.59); #Neutrophils 5.2 thou/uL (1.40-6.50); %Basophils 0.1 % (0.0-1.0); %Eosinophils 0.1 % (0.0-10.0); %Lymphocytes 9.2 % (21.0-51.0); %Monocytes 11.4 % (0.0-10.0); %Neutrophils 79.1 % (42.0-75.0); Hemoglobin 7.9 g/dL (14.0-18.0); Mean Corpuscular Hemoglobin 28.8 pg (27.0-31.0); Mean Corpuscular Volume 84.7 fL (78.0-98.0); Mean Platelet Volume 8.5 fL (7.4-10.4); Platelet Count 183 thou/uL (130-400); RBC Distribution Width 14.3 % (11.5-14.5); Red Blood Cell (RBC) Count 2.73 mill/uL (4.70-6.10); White Blood Cell (WBC) Count 6.5 thou/uL (4.8-10.8)
[2021-12-05 06:14] LABS: Anion Gap 21 mmol/L (10-20); Calc. Creatinine Clearance 0 mL/min (70-130); Carbon Dioxide 15 mmol/L (22-29); Chloride 99 mmol/L (98-107); Potassium 4.5 mmol/L (3.5-5.1); Sodium 130 mmol/L (136-145)
[2021-12-05 06:15] LABS: ALT (SGPT) 19 U/L (8-55); AST (SGOT) 10 U/L (5-34); Albumin 2.8 g/dL (3.5-5.0); Alkaline Phosphatase 98 U/L (40-110); Bilirubin, Total 0.3 mg/dL (0.2-1.2); Calcium 7.8 mg/dL (7.8-10.44); Globulin 3.4 g/dL (2.4-3.5); Glucose 202 mg/dL (70-105); Protein, Total 6.2 g/dL (6.0-8.3)
[2021-12-05 06:26] LABS: BUN (Urea Nitrogen) 114 mg/dL (8.4-25.7)
== END 2021-12-05 06:41 | disposition home or self-care (01) ==
LOC: ERS 05:14
DX: I12.0 Hypertensive chronic kidney disease with stage 5 chronic kidney disease or end stage renal disease (principal); E11.22 Type 2 diabetes mellitus with diabetic chronic kidney disease; N18.6 End stage renal disease; Z99.2 Dependence on renal dialysis
CPT/HCPCS: 36415; 80053; 85025; 93005; Q0162

== ENCOUNTER 2021-12-06 05:33 | Emergency (ER) | payer MEDICAID, OTHER ==
[2021-12-06 06:13] LABS: #Lymphocytes 0.4 thou/uL (1.20-3.40); #Monocytes 0.8 thou/uL (0.11-0.59); #Neutrophils 7.8 thou/uL (1.40-6.50); %Lymphocytes 4.9 % (21.0-51.0); %Neutrophils 86.1 % (42.0-75.0); Hemoglobin 7.6 g/dL (14.0-18.0); Mean Corpuscular HGB CONC 34.2 g/dL (32.0-36.0); Mean Corpuscular Hemoglobin 28.3 pg (27.0-31.0); Mean Corpuscular Volume 82.8 fL (78.0-98.0); Mean Platelet Volume 8.6 fL (7.4-10.4); Platelet Count 186 thou/uL (130-400); RBC Distribution Width 14.5 % (11.5-14.5); Red Blood Cell (RBC) Count 2.69 mill/uL (4.70-6.10)
[2021-12-06] MEDS ORDERED: Ondansetron PF 4 MG/2 ML Vial ONE (06:17)
[2021-12-06] MEDS ORDERED: Morphine 2 MG/ML VIAL ONE (06:17)
[2021-12-06 06:34] LABS: ALT (SGPT) 15 U/L (8-55); AST (SGOT) 8 U/L (5-34); Albumin 2.8 g/dL (3.5-5.0); Alkaline Phosphatase 102 U/L (40-110); Anion Gap 25 mmol/L (10-20); Bilirubin, Total 0.4 mg/dL (0.2-1.2); Calc. Creatinine Clearance 0 mL/min (70-130); Calcium 7.6 mg/dL (7.8-10.44); Carbon Dioxide 10 mmol/L (22-29); Chloride 98 mmol/L (98-107); Globulin 3.4 g/dL (2.4-3.5); Glucose 253 mg/dL (70-105); Protein, Total 6.2 g/dL (6.0-8.3); Sodium 128 mmol/L (136-145)
[2021-12-06 06:46] LABS: BUN (Urea Nitrogen) 134 mg/dL (8.4-25.7)
[2021-12-06] MEDS ORDERED: Heparin 10,000 UNITS/ 10 ML VIAL ONE (10:17)
[2021-12-06] MEDS ORDERED: Epoetin (ESRD) 10,000 UNITS/ML VIAL IVP SCH (12:00)
[2021-12-06] MEDS ORDERED: Morphine 4 MG/ML VIAL ONE (15:28)
== END 2021-12-06 16:05 | disposition home or self-care (01) ==
LOC: ERS 05:33
DX: I12.0 Hypertensive chronic kidney disease with stage 5 chronic kidney disease or end stage renal disease (principal); E11.22 Type 2 diabetes mellitus with diabetic chronic kidney disease; N18.6 End stage renal disease; E87.2 Acidosis; E78.5 Hyperlipidemia, unspecified; Z99.2 Dependence on renal dialysis; Z79.82 Long term (current) use of aspirin; Z79.899 Other long term (current) drug therapy
CPT/HCPCS: 36415; 80053; 85025; 90935; 96374; 96375; 96376; G0257; J1644; J2270; J2405; Q4081

== ENCOUNTER → 2021-12-06 | Emergency (ER) | payer MEDICAID, SELFPAY ==
[2021-12-06 23:07] LABS: #Lymphocytes 0.5 thou/uL (1.20-3.40); #Monocytes 0.9 thou/uL (0.11-0.59); #Neutrophils 8.8 thou/uL (1.40-6.50); %Eosinophils 0.1 % (0.0-10.0); %Lymphocytes 5.3 % (21.0-51.0); %Monocytes 9.1 % (0.0-10.0); %Neutrophils 85.6 % (42.0-75.0); Hemoglobin 7.4 g/dL (14.0-18.0); Mean Corpuscular HGB CONC 34.2 g/dL (32.0-36.0); Mean Corpuscular Hemoglobin 28.5 pg (27.0-31.0); Mean Corpuscular Volume 83.4 fL (78.0-98.0); Mean Platelet Volume 8.1 fL (7.4-10.4); Platelet Count 181 thou/uL (130-400); RBC Distribution Width 14.3 % (11.5-14.5); Red Blood Cell (RBC) Count 2.58 mill/uL (4.70-6.10); White Blood Cell (WBC) Count 10.2 thou/uL (4.8-10.8)
[2021-12-06 23:17] LABS: INR-International Normal Ratio 1.4
[2021-12-06 23:27] LABS: ALT (SGPT) 14 U/L (8-55); AST (SGOT) 8 U/L (5-34); Albumin 2.7 g/dL (3.5-5.0); Alkaline Phosphatase 95 U/L (40-110); Anion Gap 18 mmol/L (10-20); BUN (Urea Nitrogen) 65 mg/dL (8.4-25.7); Bilirubin, Total 0.4 mg/dL (0.2-1.2); Calc. Creatinine Clearance 0 mL/min (70-130); Calcium 7.6 mg/dL (7.8-10.44); Carbon Dioxide 22 mmol/L (22-29); Chloride 100 mmol/L (98-107); Globulin 3.3 g/dL (2.4-3.5); Glucose 266 mg/dL (70-105); Potassium 4.2 mmol/L (3.5-5.1); Sodium 136 mmol/L (136-145)
== END ==
LOC: ERS 21:57
DX: R04.0 Epistaxis (principal); E11.9 Type 2 diabetes mellitus without complications; E78.5 Hyperlipidemia, unspecified; I10 Essential (primary) hypertension
CPT/HCPCS: 36415; 85610; 85730; 93005

== ENCOUNTER 2021-12-12 07:42 | Emergency (ER) | payer MEDICAID, SELFPAY ==
[2021-12-12 08:10] LABS: #Lymphocytes 0.6 thou/uL (1.20-3.40); #Monocytes 0.6 thou/uL (0.11-0.59); #Neutrophils 9.8 thou/uL (1.40-6.50); %Basophils 0.2 % (0.0-1.0); %Eosinophils 0.2 % (0.0-10.0); %Lymphocytes 5.8 % (21.0-51.0); %Monocytes 5.5 % (0.0-10.0); %Neutrophils 88.4 % (42.0-75.0); Hemoglobin 5.3 g/dL (14.0-18.0); Mean Corpuscular HGB CONC 33.1 g/dL (32.0-36.0); Mean Corpuscular Hemoglobin 27.8 pg (27.0-31.0); Mean Platelet Volume 8.8 fL (7.4-10.4); Platelet Count 235 thou/uL (130-400); Red Blood Cell (RBC) Count 1.89 mill/uL (4.70-6.10); White Blood Cell (WBC) Count 11.1 thou/uL (4.8-10.8)
[2021-12-12 08:32] LABS: ALT (SGPT) 17 U/L (8-55); AST (SGOT) 9 U/L (5-34); Albumin 2.7 g/dL (3.5-5.0); Alkaline Phosphatase 103 U/L (40-110); Anion Gap 25 mmol/L (10-20); Bilirubin, Total 0.4 mg/dL (0.2-1.2); Calc. Creatinine Clearance 0 mL/min (70-130); Calcium 7.2 mg/dL (7.8-10.44); Carbon Dioxide 17 mmol/L (22-29); Chloride 94 mmol/L (98-107); Globulin 3.3 g/dL (2.4-3.5); Glucose 252 mg/dL (70-105); Potassium 4.9 mmol/L (3.5-5.1); Sodium 131 mmol/L (136-145)
[2021-12-12 08:45] LABS: BUN (Urea Nitrogen) 143 mg/dL (8.4-25.7)
[2021-12-12] MEDS ORDERED: Heparin 10,000 UNITS/ 10 ML VIAL ONE (08:49)
[2021-12-12] MEDS ORDERED: EPOETIN ALFA-EPBX (ESRD) 10,000 UNIT/ML VIAL SC SCH (09:30)
[2021-12-12 16:53] LABS: Hep B Core Total Ab Non-Reactive (NonReactive)
[2021-12-12 16:54] LABS: HBSAB Concentration Less than 8.00 mIU/mL; HBSAg Index 0.26 S/CO (0-0.99); Hep B Surf AB Non-Reactive (NonReactive); Hep B Surf Ag Non-Reactive S/CO (NonReactive)
[2021-12-12 16:55] LABS: Hep C IgG Ab Non-Reactive (NonReactive); Hep C Index 0.14 S/CO (0-0.79)
== END 2021-12-12 19:05 | disposition home or self-care (01) ==
LOC: ERS 07:42
DX: D64.9 Anemia, unspecified (principal); N19 Unspecified kidney failure; E78.5 Hyperlipidemia, unspecified; E11.9 Type 2 diabetes mellitus without complications; I10 Essential (primary) hypertension; Z79.899 Other long term (current) drug therapy
CPT/HCPCS: 36415; 36430; 80053; 85025; 86704; 86706; 86803; 86850; 86900; 86901; 87340; 90935; 93005; 96372; G0257; J1644; P9016; Q5105